=== PATIENT | female | born 1990 | race Caucasian/White ===

== ENCOUNTER → 2017-03-09 | Outpatient (REF) | payer OTHER | LOC: M LAB REF 12:36 | PROVIDERS: ATTEND Internal Medicine | DX: D51.9 Vitamin B12 deficiency anemia, unspecified (principal) ==

== ENCOUNTER → 2017-10-30 | Outpatient (REF) | payer OTHER ==
[2017-10-30 20:20] LABS: VITAMIN B12 LEVEL 451 PG/ML (247-911)
== END ==
LOC: M LAB REF 17:28
DX: D51.9 Vitamin B12 deficiency anemia, unspecified (principal)

== ENCOUNTER → 2017-11-22 | Outpatient (REF) | payer OTHER | LOC: M LAB REF 15:59 | DX: J18.9 Pneumonia, unspecified organism (principal) | CPT/HCPCS: 87633 ==

== ENCOUNTER → 2018-02-25 | Outpatient (REF) | payer OTHER ==
[2018-02-25 18:48] LABS: CONTROL LINE HCG INT CTR LINE PRESENT; HCG, SERUM QUALITATIVE NEGATIVE (NEGATIVE)
== END ==
LOC: M LAB REF 17:49
DX: R10.2 Pelvic and perineal pain (principal)

== ENCOUNTER → 2019-02-05 | Outpatient (REF) | payer OTHER ==
[2019-02-05 14:05] LABS: HCG, SERUM QUALITATIVE NEGATIVE (NEGATIVE)
== END ==
LOC: M LAB REF 12:31
PROVIDERS: ATTEND Internal Medicine
DX: N93.9 Abnormal uterine and vaginal bleeding, unspecified (principal)

== ENCOUNTER → 2019-11-05 | Outpatient (REF) | payer OTHER ==
[2019-11-05 19:47] LABS: APPEARANCE, URINE CLEAR (CLEAR); BACTERIA, URINE AUTO NEGATIVE (NEGATIVE); BILIRUBIN, URINE AUTO NEGATIVE (NEGATIVE); BLOOD, URINE BLOOD NEGATIVE (NEGATIVE); COLOR, URINE YELLOW (YELLOW); GLUCOSE, URINE (UA) AUTO NEGATIVE (NEGATIVE); KETONE, URINE AUTO NEGATIVE (NEGATIVE); LEUKOCYTE ESTERASE, URINE AUTO NEGATIVE (NEGATIVE); NITRITE, URINE AUTO NEGATIVE (NEGATIVE); PROTEIN, URINE AUTO NEGATIVE (NEGATIVE); RBC, URINE AUTO 0 /HPF (0-3); SQUAMOUS EPITHELIAL CELL UR AU 1 /HPF (0-6); UROBILINOGEN, URINE AUTO 0.2 mg/dL (0.0-2.0); WBC, URINE AUTO 2 /HPF (0-3)
== END ==
LOC: M LAB REF 19:07
PROVIDERS: ATTEND Physician Assistant
DX: N39.0 Urinary tract infection, site not specified (principal)

== ENCOUNTER → 2019-11-13 | Outpatient (REF) | payer OTHER ==
[2019-11-13 14:31] LABS: PERCENT SATURATION 30.6 % (13.2-45.0)
== END ==
LOC: M LAB REF 13:23
PROVIDERS: ATTEND Internal Medicine
DX: N76.0 Acute vaginitis (principal)

== ENCOUNTER 2020-04-01 00:50 | Observation (INO) | payer OTHER ==
[~2020-04-01] VITALS: Ht 167.6 cm; Wt 70.4 kg
[2020-04-01] MEDS ORDERED: FLAG500T PO ×2 (00:57→09:30)
[2020-04-01] MEDS ORDERED: NS 1,000 ML IV ONE (01:45)
[2020-04-01] MEDS ORDERED: METAL LOCK LOOP XX ONE (02:15)
[2020-04-01 02:28] LABS: BASO % 0.2 % (0.0-1.0); EOS % 0.4 % (0.0-3.0); HEMATOCRIT 40.6 % (36.0-47.0); HEMOGLOBIN 13.3 g/dl (12.0-15.5); LYMPH # 2.2 10^3/uL (1.5-5.0); MEAN CORPUSCULAR HEMOGLOBIN 28.1 pg (27.0-33.0); MEAN CORPUSCULAR HGB CONC 32.8 g/dl (32.0-36.5); MEAN CORPUSCULAR VOLUME 85.8 fl (80.0-96.0); MONO # 0.6 10^3/uL (0.0-0.8); NEUTROPHILS # 6.7 10^3/uL (1.5-8.5); NEUTROPHILS % 70.2 % (36.0-66.0); PLATELET COUNT, AUTOMATED 309 10^3/uL (150-450); RED BLOOD COUNT 4.73 10^6/uL (4.00-5.40); WHITE BLOOD COUNT 9.5 10^3/uL (4.0-10.0)
[2020-04-01] MEDS ORDERED: SING10TA32 PO (02:40)
[2020-04-01] MEDS ORDERED: CVS1CAP2 PO (02:41)
[2020-04-01 02:49] LABS: AMPHETAMINES LEVEL URINE NEGATIVE (NEGATIVE); BARBITURATES URINE NEGATIVE (NEGATIVE); BENZODIAZEPINES URINE NEGATIVE (NEGATIVE); CANNABINOIDS URINE NEGATIVE (NEGATIVE); COCAINE METABOLITE URINE NEGATIVE (NEGATIVE); METHADONE URINE NEGATIVE (NEGATIVE); OPIATES URINE NEGATIVE (NEGATIVE); PHENCYCLIDINE URINE NEGATIVE (NEGATIVE)
[2020-04-01 02:56] LABS: BLOOD UREA NITROGEN 8 MG/DL (7-18); CALCIUM LEVEL 9.3 MG/DL (8.5-10.1); CARBON DIOXIDE LEVEL 23 MEQ/L (21-32); CHLORIDE LEVEL 103 MEQ/L (98-107); CK-MB VALUE MASS < 1.0 NG/ML (<3.6); CPK CREATINE PHOSPHOKINASE 74 U/L (26-192); CREATININE FOR GFR 0.82 MG/DL (0.55-1.30); GLOMERULAR FILTRATION RATE > 60.0 (>60); GLUCOSE, FASTING 119 MG/DL (70-100); MB/CK RELATIVE INDEX 1.35 (< OR =4); POTASSIUM SERUM 3.5 MEQ/L (3.5-5.1); SODIUM LEVEL 133 MEQ/L (136-145); T UPTAKE 32 % (30-39); THYROXINE (T4) 15.6 UG/DL (4.5-12.0); TROPONIN I < 0.02 NG/ML (< 0.10)
[2020-04-01 03:36] LABS: HCG, SERUM QUALITATIVE NEGATIVE (NEGATIVE)
[2020-04-01] MEDS ORDERED: SETL1TAB PO (04:08)
--- NOTE | 2020-04-01 04:29 | HPEPDOC ---
General Date of Admission Apr 01, 2020 at 04:01 Date of Service: Apr 01, 2020 Chief Complaint The patient is a 29-year-old female admitted with a reason for visit of Abnormal Thyroid Function Test,Dizziness,Tachycard. Source: Patient Exam Limitations: No limitations Timing/Duration: 4-6 hours Severity: Moderate Associated Symptoms: Nausea, Dizziness History of Present Illness Patient is 29 years old female without significant past medical history presented hospital with nausea and dizziness and tachycardia. Patient stated that for past few days she's been having heart racing, around 11 PM this evening she developed nausea and dizziness. Patient denied any symptoms like this before. Patient stated that in general she is a healthy and only take Flagyl and Diflucan for treatment bacterial vaginosis and candidiasis. In emergency room patient was found to have elevated blood pressure of 150/80 with sinus tachycardia of 140. TSH 3.3, T4 15.6 Patient denied fever, chills, cough, chest pain, diarrhea or dysuria Home Medications Scheduled Lactobacillus Combo No.10 (Probiotic) 1 Each Capsule, 1 CAP PO DAILY, (Reported) Levonorgestrel-Ethin Estradiol (Setlakin 0.15 mg-0.03 mg Tab) 1 Each Tbdspk.3mo, 1 TAB PO DAILY, (Reported) Metronidazole (Flagyl) 500 Mg Tablet, 500 MG PO BID, (Reported) Montelukast Sodium (Singulair) 10 Mg Tablet, 10 MG PO DAILY, (Reported) Allergies Coded Allergies: sulfamethoxazole (Verified Allergy, Mild, flushed/rash, 04/01/20) trimethoprim (Verified Allergy, Mild, flushed/rash, 04/01/20) Past Medical History Medical History No significant past medical history Family History Mom has a history of hyperthyroidism Social History * Smoker: Denies Alcohol: Denies A-FIB/CHADSVASC A-FIB History Current/History of A-Fib/PAF?: No Current PO Anticoag Therapy: No Review of Systems Constitutional: Denies: Chills, Fever Eyes: Denies: Pain ENT: Denies: Head Aches Skin: Denies: Rash, Lesions Pulmonary: Denies: Dyspnea Cardiovascular: Reports: Palpitations; Denies: Chest Pain Gastrointestinal: Denies: Nausea, Vomiting Genitourinary: Denies: Dysuria Hematologic: Denies: Bruising, Bleeding Excessively Endocrine: Denies: Polydipsia, Polyphagia Musculoskeletal: Denies: Neck Pain, Other Symptoms Neurological: Denies: Weakness Psych: Reports: Mood Normal Physical Examination General Exam: Positive: Alert, Cooperative Eye Exam: Positive: PERRLA; Negative: Conjunctiva & lids normal (bilateral exophalmus) ENT Exam: Negative: Atraumatic Neck Exam: Positive: Supple; Negative: JVD, Lymphadenopathy Chest Exam: Positive: Clear to auscultation Heart Exam: Positive: Tachycardic Telemetry: Positive: Sinus Abdomen Exam: Positive: Normal bowel sounds Extremity Exam: Negative: Clubbing, Cyanosis Skin Exam: Positive: Nl turgor and temperature Neuro Exam: Positive: Strength at 5/5 X4 ext, Cranial Nerves 3-12 NL Psych Exam: Positive: Mental status NL Vital Signs Vital Signs Date Time Temp Pulse Resp B/P (MAP) Pulse Ox O2 Delivery O2 Flow Rate FiO2 04/01/20 03:16 120 16 141/78 (99) 99 04/01/20 00:52 98.2 Room Air Laboratory Data Labs 24H Laboratory Tests 2 04/01/20 01:49: Immature Granulocyte % (Auto) 0.2, Neutrophils (%) (Auto) 70.2H, Lymphocytes (%) (Auto) 23.0L, Monocytes (%) (Auto) 6.0H, Eosinophils (%) (Auto) 0.4, Basophils (%) (Auto) 0.2, Neutrophils # (Auto) 6.7, Lymphocytes # (Auto) 2.2, Monocytes # (Auto) 0.6, Eosinophils # (Auto) 0.0, Basophils # (Auto) 0.0, Nucleated Red Blood Cells % (auto) 0.0, Anion Gap 7L, Glomerular Filtration Rate > 60.0, Calcium Level 9.3, Total Creatine Kinase 74, Creatine Kinase MB < 1.0, Creatine Kinase MB Relative Index 1.35, Troponin I < 0.02, Thyroid Stimulating Hormone (TSH) 3.330, Free Thyroxine Index 5.0H, Thyroxine (T4) 15.6H, Triiodothyronine (T3) Uptake 32, Human Chorionic Gonadotropin, Qual NEGATIVE, Urine Opiates Scre en NEGATIVE, Urine Methadone Screen NEGATIVE, Urine Barbiturates Screen NEGATIVE, Urine Phencyclidine Screen NEGATIVE, Urine Amphetamines Screen NEGATIVE, Urine Benzodiazepines Screen NEGATIVE, Urine Cocaine Metabolite Screen NEGATIVE, Urine Cannabinoids Screen NEGATIVE CBC/BMP Laboratory Tests 04/01/20 01:49 Assessment/Plan Patient is 29 years old female without significant past medical history presented hospital with nausea and dizziness and tachycardia. Patient stated that for past few days she's been having heart racing, around 11 PM this evening she developed nausea and dizziness. Patient denied any symptoms like this before. Patient stated that in general she is a healthy and only take Flagyl and Diflucan for treatment bacterial vaginosis and candidiasis. In emergency room patient was found to have elevated blood pressure of 150/80 with sinus t achycardia of 140. TSH 3.3, T4 15.6 Patient denied fever, chills, cough, chest pain, diarrhea or dysuria Problems (1) Abnormal thyroid function test Status: Acute Problem Text: Differential diagnosis includes Graves diseases, toxic adenoma, toxic multinodular goiter. Unlikely thyroiditis Patient has elevated T4, T3, exophthalmus, tachycardia. TSH within normal limit , however most likely it can be manifestation of initial phase of hyperthyroidism We'll check TSI , TBII, BRIDGETT I will start propranolol 10 mg every 4h (2) Tachycardia Status: Acute Problem Text: Most likely secondary to hyperthyroidism Propranolol by mouth Plan / VTE VTE Prophylaxis Ordered?: Yes KEVIN SIDHU DO Apr 01, 2020 04:29
[2020-04-01 04:55] VITALS: BP 145/80
[2020-04-01] MEDS ORDERED: PROPRANOLOL 10 MG TAB PO SCH (05:00)
[2020-04-01] MEDS ORDERED: SLF 3 ML SYR IV PRN (05:30)
[2020-04-01] MEDS: SLF 3 ML SYR IV SCH ×3 (06:18→21:17)
[2020-04-01] MEDS ORDERED: D5W/0.45% SODIUM CHLORIDE 1,000 ML IV SCH (07:00)
[2020-04-01 07:03] VITALS: BP 137/79
--- NOTE | 2020-04-01 07:27 | ECGEPIP ---
[facility] - ED Test Date: 2020-04-01 Pat Name: BIJU LALA Department: Room: [place] [address] Gender: Female [employer]: ace : 1990 Requested By: MIAN BARRIOS Order Number: [id number] Reading MD: Rodriguez Perez Measurements Intervals [place] Rate: 108 P: 67 MA: 133 QRS: 75 QRSD: 82 T: -72 QT: 305 QTc: 410 Interpretive Statements SINUS TACHYCARDIA ST DEVIATION AND MODERATE T-WAVE ABNORMALITY, CONSIDER ANTEROLATERAL ISCHEMIA ST DEVIATION AND MODERATE T-WAVE ABNORMALITY, CONSIDER INFERIOR ISCHEMIA NO PRIORS FOR COMPARISON Electronically Signed on 04-01-2020 7:27:10 EDT by Rodriguez Perez
[2020-04-01] MEDS ORDERED: FLUC10TA PO (09:30)
[2020-04-01] MEDS: metroNIDAZOLE (FLAGYL) 500MG TABLET PO SCH ×3 (09:54→21:16)
[2020-04-01] MEDS: HEPARIN SOD (PORCINE) 5000UNITS/ML 1ML VIAL/SYRINGE SC SCH ×2 (09:56→21:16)
[2020-04-01] MEDS: PROPRANOLOL 20 MG TAB PO SCH ×3 (09:56→21:16)
--- NOTE | 2020-04-01 11:28 | IPNPDOC ---
Date Seen The patient was seen on 04/01/20. Progress Note Elevated T4 -unable to obtain nuc med thyroid uptake scan. earliest is Sunday. therefore, appt made for Sunday. NPO for at least 4hrs, no antithyroid meds or contrast studies prior to scan. -propranolol for symptoms Ophthalmopathy -awaiting Thyrotropin rec ab and RAIUscan to confirm Graves. -denies diplopia, no conjuctival injection. PCP to refer to ophthalmology if worsening visual symptoms. Plan: dc in am if cleared by PT,and no orthostasis. continue TELE for the next 24hrs. VS, I&O, 24H, Fishbone Vital Signs/I&O Vital Signs Date Time Temp Pulse Resp B/P (MAP) Pulse Ox O2 Delivery O2 Flow Rate FiO2 04/01/20 09:56 88 137/79 04/01/20 07:03 98.5 18 98 Room Air I&O- Last 24 Hours up to 6 AM 04/01/20 06:00 Intake Total 1000 ml Output Total 0 ml Balance 1000 ml Laboratory Data 24H LABS Laboratory Tests 2 04/01/20 01:49: Immature Granulocyte % (Auto) 0.2, Neutrophils (%) (Auto) 70.2H, Lymphocytes (%) (Auto) 23.0L, Monocytes (%) (Auto) 6.0H, Eosinophils (%) (Auto) 0.4, Basophils (%) (Auto) 0.2, Neutrophils # (Auto) 6.7, Lymphocytes # (Auto) 2.2, Monocytes # (Auto) 0.6, Eosinophils # (Auto) 0.0, Basophils # (Auto) 0.0, Nucleated Red Blood Cells % (auto) 0.0, Anion Gap 7L, Glomerular Filtration Rate > 60.0, Calci um Level 9.3, Total Creatine Kinase 74, Creatine Kinase MB < 1.0, Creatine Kinase MB Relative Index 1.35, Troponin I < 0.02, Thyroid Stimulating Hormone (TSH) 3.330, Free Thyroxine Index 5.0H, Thyroxine (T4) 15.6H, Triiodothyronine (T3) Uptake 32, Human Chorionic Gonadotropin, Qual NEGATIVE, Urine Opiates Screen NEGATIVE, Urine Methadone Screen NEGATIVE, Urine Barbiturates Screen NEGATIVE, Urine Phencyclidine Screen NEGATIVE, Urine Amphetamines Screen NEGATIVE, Urine Benzodiazepines Screen NEGATIVE, Urine Cocaine Metabolite Screen NEGATIVE, Urine Cannabinoids Screen NEGATIVE 04/01/20 05:08: 04/01/20 09:43: Immunoglobulin A 130.0, Immunoglobulin G 842, Immunoglobulin M 103.0, Complement C3 101, Complement C4 12 CBC/BMP Laboratory Tests 04/01/20 01:49 HEATH SALEH MD Apr 01, 2020 11:28
[2020-04-01 12:00] VITALS: BP 155/74
[2020-04-01] MEDS: FLUCONAZOLE 50MG TABLET PO SCH (13:49)
[2020-04-01 16:00] VITALS: BP_SYST 123; BP_SYST 128; BP_SYST 129; BP_DIAS 73; BP_DIAS 77; BP_DIAS 81
[2020-04-01] MEDS: ONDANSETRON 4MG/2ML VIAL IV PRN (19:47)
[2020-04-01 20:00] VITALS: BP 143/89
[2020-04-01] MEDS ORDERED: ACETAMINOPHEN TAB 650MG DOSE (2X325MG) PO PRN (22:15)
[2020-04-02] VITALS: BP 109/61
[2020-04-02 04:00] VITALS: BP 136/73
[2020-04-02 04:41] LABS: HEMATOCRIT 39.3 % (36.0-47.0); HEMOGLOBIN 12.8 g/dl (12.0-15.5); MEAN CORPUSCULAR HEMOGLOBIN 28.2 pg (27.0-33.0); MEAN CORPUSCULAR HGB CONC 32.6 g/dl (32.0-36.5); MEAN CORPUSCULAR VOLUME 86.6 fl (80.0-96.0); PLATELET COUNT, AUTOMATED 276 10^3/uL (150-450); RED BLOOD COUNT 4.54 10^6/uL (4.00-5.40); WHITE BLOOD COUNT 6.6 10^3/uL (4.0-10.0)
[2020-04-02 05:02] LABS: BLOOD UREA NITROGEN 7 MG/DL (7-18); CALCIUM LEVEL 9.2 MG/DL (8.5-10.1); CARBON DIOXIDE LEVEL 24 MEQ/L (21-32); CHLORIDE LEVEL 110 MEQ/L (98-107); CREATININE FOR GFR 0.68 MG/DL (0.55-1.30); GLOMERULAR FILTRATION RATE > 60.0 (>60); GLUCOSE, FASTING 88 MG/DL (70-100); MAGNESIUM LEVEL 1.9 MG/DL (1.8-2.4); POTASSIUM SERUM 4.1 MEQ/L (3.5-5.1); SODIUM LEVEL 139 MEQ/L (136-145)
[2020-04-02] MEDS: SLF 3 ML SYR IV SCH ×2 (06:22→08:30)
[2020-04-02] MEDS ORDERED: PROP20TA PO (07:53)
[2020-04-02] MEDS: FLUCONAZOLE 50MG TABLET PO SCH (08:29)
[2020-04-02 08:30] VITALS: BP 123/74
[2020-04-02] MEDS: metroNIDAZOLE (FLAGYL) 500MG TABLET PO SCH (08:30)
[2020-04-02] MEDS: PROPRANOLOL 20 MG TAB PO SCH (08:30)
[2020-04-02] MEDS: HEPARIN SOD (PORCINE) 5000UNITS/ML 1ML VIAL/SYRINGE SC SCH (08:30)
[2020-04-02 08:35] VITALS: BP 123/74
[2020-04-02 09:49] LABS: THYROID PEROXIDASE ANTIBODY 30.1 U/ML (<60.0)
[2020-04-02 09:50] LABS: THYROGLOBULIN ANTIBODY 18.4 U/ML (<60.0)
[2020-04-02] MEDS: ONDANSETRON 4MG/2ML VIAL IV PRN (10:47)
[2020-04-02] MEDS ORDERED: metroNIDAZOLE (FLAGYL) 500MG TABLET PO SCH (21:00)
[2020-04-03 20:07] LABS: ANTINUCLEAR ANTIBODIES DIRECT Negative (Negative); THYROID BINDING GLOBULIN 24 ug/mL (13-39); THYROID STIMULATING IMMUNOGLOB <0.10 IU/L (0.00-0.55)
--- NOTE | 2020-04-04 16:19 | DSES ---
DATE OF ADMISSION: 04/01/2020 DATE OF DISCHARGE: 04/02/2020 PRIMARY DISCHARGE DIAGNOSES: 1. Suspected hyperthyroidism, questionable Graves' disease. 2. Palpitations and dizziness secondary to suspected hyperthyroidism. 3. Bacterial vaginosis. 4. Oral thrush. 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 Patient had T4 of 15.6, Free T4 index of 5, TSH was 3.33. She was tachycardic with rate of 127, sinus tachycardia on arrival, with normal blood pressure ranging from 142-161 systolic. Patient was started on propranolol 10 mg every 4 hours, but with persistent symptoms, changed to 20 mg three times a day, with heart rate improving to 71-89. Blood pressure was well-maintained at 109-143 systolic. Patient was kept on telemetry with no other issues overnight. She still complained of some lightheadedness. Orthostatics were checked, where were negative. Patient is stable for hospital discharge to followup on thyroglobulin receptor antibodies, as well as nuclear medicine radioactive iodine uptake scan on Sunday and Sunday and referral to co pilot as outpatient. PHYSICAL EXAMINATION: Temperature 97.4, pulse 76, respiratory 20, blood pressure 136/73, 99% on room air. GENERAL: Patient has obvious dermal ophthalmopathy. Extraocular muscles intact. Pupils round and reactive. No jugular venous distention (JVD) or thyromegaly. Moist mucous membranes. LUNGS: Clear to auscultation. No wheezing, rales or rhonchi. HEART: S1, S2. Sinus rhythm. ABDOMEN: Soft, nontender, nondistended. Positive bowel sounds. EXTREMITIES: No cyanosis, clubbing or any pitting edema. LABORATORY DATA: White count 6.6, hemoglobin 12, hematocrit 39, platelet count 276. Sodium 139, potassium 4, chloride 110, bicarbonate 24, BUN 7, creatinine 0.68, glucose 88. TSH 3.33, Free T4 index of 5, T4 15.6, T3 uptake of 32. T4 binding globulin, thyroid stimulating immunoglobulin pending. HCG negative. GAMG normal. BRIDGETT screen pending. Complement level, C3, 4 pending. C5 and total CH50 pending. DISCHARGE INSTRUCTIONS: Immediate followup with primary care physician within five days of discharge. Patient is to be nothing by mouth after midnight for nuclear medicine radioactive thyroid uptake scan on Sunday and Sunday. Patient is to avoid any contrast study or treatment for hyperthyroidism until the radioactive iodine uptake scan has been completed. Primary care physician to refer to co pilot as outpatient. CAM
[2020-04-09 21:07] LABS: COMPLEMENT C5 16 mg/dL (7-20); COMPLEMENT TOTAL (CH50) 52 U/mL (>41)
== END 2020-04-02 11:45 | disposition home or self-care (01) ==
LOC: M ED 00:50 → M ED INP 04:01 → ENRESERV 04:26 → M PCU 04:56
PROVIDERS: ADMIT Internal Medicine; ATTEND Internal Medicine
DX: E05.90 Thyrotoxicosis, unspecified without thyrotoxic crisis or storm (principal); R00.0 Tachycardia, unspecified; R42 Dizziness and giddiness; B96.89 Other specified bacterial agents as the cause of diseases classified elsewhere; B37.0 Candidal stomatitis; Z79.899 Other long term (current) drug therapy; Z88.2 Allergy status to sulfonamides; Z88.8 Allergy status to other drugs, medicaments and biological substances
CPT/HCPCS: 36415; 80048; 80307; 82550; 82553; 82784; 83735; 84436; 84442; 84443; 84445; 84479; 84484; 84703; 85025; 85027; 86038; 86160; 86162; 86376; 86800; 93005; 96361; 96372; 96374; 96376; 97161; 99285; J1644; J2405

== ENCOUNTER → 2020-04-05 | Outpatient (CLI) | payer OTHER ==
[~2020-04-05] MED LIST: CVS1CAP2 PO; FLAG500T PO; FLUC10TA PO; PROP20TA PO; SETL1TAB PO; SING10TA32 PO
--- NOTE | 2020-04-06 13:49 | REP ---
RADIONUCLIDE THYROID UPTAKE AND SCAN: HISTORY: Abnormal TSH. Abnormal thyroid levels. No comparison imaging. TECHNIQUE: 381.0 microcuries of I 123 sodium iodine is ingested and 24 uptake values acquired along with functional images. RESULTS: The 24 uptake value is normal measured at 29.76% (25-35%). Functional images demonstrate homogeneous uptake in normal symmetric sized thyroid lobes. No cold or warm nodule is seen. IMPRESSION: Normal thyroid scan and uptake. Electronically Signed by Aydin Carter MD 04/06/2020 04:00 P
== END ==
LOC: M RAD 12:17
PROVIDERS: ATTEND General Practice
DX: E05.90 Thyrotoxicosis, unspecified without thyrotoxic crisis or storm (principal)
CPT/HCPCS: 78012; A9516

== ENCOUNTER → 2020-06-12 | Outpatient (CLI) | payer OTHER ==
[2020-06-12 18:32] LABS: FREE T4 1.07 NG/DL (0.76-1.46); THYROID STIMULATING HORMONE 1.23 uIU/ML (0.358-3.740)
[2020-06-15 10:51] LABS: CORTISOL AM 29.6 UG/DL (4.3-22.4); THYROID PEROXIDASE ANTIBODY 30.6 U/ML (<60.0)
== END ==
LOC: M WUC 08:30
PROVIDERS: ATTEND Nurse Practitioner Family
DX: E05.80 Other thyrotoxicosis without thyrotoxic crisis or storm (principal); R00.0 Tachycardia, unspecified

== ENCOUNTER → 2020-11-17 | Outpatient (REF) | payer OTHER | LOC: M LAB REF 16:09 | PROVIDERS: ATTEND Internal Medicine | DX: D51.9 Vitamin B12 deficiency anemia, unspecified (principal) ==

== ENCOUNTER → 2021-11-21 | Outpatient (REF) | payer OTHER | LOC: M LAB REF 16:37 | PROVIDERS: ATTEND Internal Medicine | DX: D51.9 Vitamin B12 deficiency anemia, unspecified (principal) ==

== ENCOUNTER → 2022-02-17 | Outpatient (REF) | payer OTHER | LOC: M LAB REF 17:38 | PROVIDERS: ATTEND Internal Medicine | DX: N91.2 Amenorrhea, unspecified (principal) ==

== ENCOUNTER → 2022-05-03 | Outpatient (REF) | payer OTHER | LOC: M LAB REF 16:20 | PROVIDERS: ATTEND Internal Medicine | DX: N91.2 Amenorrhea, unspecified (principal) ==

== ENCOUNTER → 2022-05-30 | Outpatient (REF) | payer OTHER | LOC: M LAB REF 11:59 | PROVIDERS: ATTEND Internal Medicine | DX: Z32.01 Encounter for pregnancy test, result positive (principal) ==

== ENCOUNTER → 2022-06-21 | Outpatient (CLI) | payer OTHER ==
[2022-06-21 10:38] LABS: HEMOGLOBIN 11.9 g/dl (12.0-15.5); MEAN CORPUSCULAR HEMOGLOBIN 28.5 pg (27.0-33.0); MEAN CORPUSCULAR HGB CONC 33.1 g/dl (32.0-36.5); MEAN CORPUSCULAR VOLUME 86.3 fl (80.0-96.0); PLATELET COUNT, AUTOMATED 243 10^3/uL (150-450); RED BLOOD COUNT 4.17 10^6/uL (4.00-5.40)
[2022-06-21 11:50] LABS: HEPATITIS C VIRUS ABY INDEX < 0.0 INDEX (<0.8); HIV 1&2 SCREEN CENTAUR NEGATIVE (NEGATIVE)
[2022-06-21 12:16] LABS: GC DNA AMPLIFICATION NEGATIVE (NEGATIVE)
== END ==
LOC: M PLALAB 08:14
PROVIDERS: ATTEND Obstetrics & Gynecology
DX: Z34.91 Encounter for supervision of normal pregnancy, unspecified, first trimester (principal)

== ENCOUNTER → 2022-08-07 | Outpatient (CLI) | payer OTHER | LOC: M WHC 13:51 | PROVIDERS: ATTEND Obstetrics & Gynecology | DX: Z34.92 Encounter for supervision of normal pregnancy, unspecified, second trimester (principal); Z3A.20 20 weeks gestation of pregnancy ==

== ENCOUNTER → 2022-09-29 | Outpatient (CLI) | payer OTHER ==
[2022-09-29 15:16] LABS: MEAN CORPUSCULAR HEMOGLOBIN 28.8 pg (27.0-33.0); MEAN CORPUSCULAR HGB CONC 32.4 g/dl (32.0-36.5); PLATELET COUNT, AUTOMATED 259 10^3/uL (150-450); RED BLOOD COUNT 3.82 10^6/uL (4.00-5.40); WHITE BLOOD COUNT 9.8 10^3/uL (4.0-10.0)
[2022-09-29 16:12] LABS: GC DNA AMPLIFICATION NEGATIVE (NEGATIVE)
== END ==
LOC: M PLALAB 09:56
PROVIDERS: ATTEND Specialist
DX: Z34.02 Encounter for supervision of normal first pregnancy, second trimester (principal)

== ENCOUNTER → 2022-11-21 | Outpatient (REF) | payer OTHER ==
[2022-11-23 18:17] LABS: PERCENT SATURATION 18.7 % (13.2-45.0)
[2022-11-23 18:20] LABS: FERRITIN 9.6 NG/ML (7.3-270.7)
== END ==
LOC: M LAB REF 16:10
PROVIDERS: ATTEND Internal Medicine
DX: D64.9 Anemia, unspecified (principal)

== ENCOUNTER → 2022-11-28 | Outpatient (REF) | payer OTHER | LOC: M SFHCWAGY 15:23 | PROVIDERS: ATTEND Obstetrics & Gynecology | DX: Z34.03 Encounter for supervision of normal first pregnancy, third trimester (principal) ==

== ENCOUNTER → 2022-12-26 | Outpatient (CLI) | payer OTHER ==
[~2022-12-26] MED LIST changes: +MONT-5 PO; -SING10TA32 PO
[2022-12-26 14:02] LABS: HEMATOCRIT 35.9 % (36.0-47.0); HEMOGLOBIN 11.6 g/dl (12.0-15.5); MEAN CORPUSCULAR HEMOGLOBIN 28.3 pg (27.0-33.0); MEAN CORPUSCULAR HGB CONC 32.3 g/dl (32.0-36.5); MEAN CORPUSCULAR VOLUME 87.6 fl (80.0-96.0); PLATELET COUNT, AUTOMATED 253 10^3/uL (150-450); WHITE BLOOD COUNT 8.8 10^3/uL (4.0-10.0)
[2022-12-26 14:28] LABS: TOTAL PROTEIN,RANDOM URINE 9.3 MG/DL (0.0-14.0)
[2022-12-26 14:31] LABS: URIC ACID 4.2 MG/DL (3.1-7.8)
[2022-12-26 14:33] LABS: CREATININE,RANDOM URINE 39.9 MG/DL; LDH LACTATE DEHYDROGENASE 141 U/L (120-246)
[2022-12-26 14:34] LABS: ALT/SGPT 19 U/L (7.0-40); AST/SGOT 22 U/L (<34); BILIRUBIN,TOTAL 0.3 MG/DL (0.3-1.2); CREATININE FOR GFR 0.37 MG/DL (0.55-1.30); GLOMERULAR FILTRATION RATE > 60.0 (>60)
== END ==
LOC: M PLALAB 09:44
PROVIDERS: ATTEND Advanced Practice Midwife
DX: O13.9 Gestational [pregnancy-induced] hypertension without significant proteinuria, unspecified trimester (principal)

== ENCOUNTER 2023-01-01 09:54 | Inpatient (IN) | payer OTHER ==
[2023-01-01] VITALS (11 sets, daily range): BP systolic 116–146; BP diastolic 70–94
[~2023-01-01] VITALS: Ht 165.1 cm; Wt 80.2 kg
[2023-01-01] MEDS ORDERED: LACTATED RINGER'S 1000 ML IV STA (10:05)
[2023-01-01] MEDS ORDERED: OXYTOCIN DRIP 30 UNITS in IV 1 EA IV PRN (10:05)
[2023-01-01] MEDS ORDERED: CARBOPROST TROMETHAMINE 250 MCG/ML AMP IM PRN (10:05)
[2023-01-01] MEDS ORDERED: OXYTOCIN INJ 10UNITS/ML 1ML VIAL IM PRN (10:05)
[2023-01-01] MEDS ORDERED: LIDOCAINE 1% MDV 20ML VIAL INFIL PRN (10:05)
[2023-01-01] MEDS ORDERED: TRANEXAMIC ACID INJection 1,000 MG in NS 100 ML IV PRN (10:05)
[2023-01-01] MEDS ORDERED: METHYLERGONOVINE MALEATE 0.2MG/ML 1ML VIAL IM PRN (10:05)
[2023-01-01] MEDS ORDERED: PRENTAB9 PO (10:13)
[2023-01-01] MEDS ORDERED: HOME MED LIST COMPLETE! XX SCH (10:15)
[2023-01-01 10:46] LABS: HEMATOCRIT 36.9 % (36.0-47.0); HEMOGLOBIN 12.2 g/dl (12.0-15.5); MEAN CORPUSCULAR HEMOGLOBIN 28.4 pg (27.0-33.0); MEAN CORPUSCULAR HGB CONC 33.1 g/dl (32.0-36.5); MEAN CORPUSCULAR VOLUME 85.8 fl (80.0-96.0); PLATELET COUNT, AUTOMATED 247 10^3/uL (150-450); WHITE BLOOD COUNT 9.8 10^3/uL (4.0-10.0)
[2023-01-01] MEDS: miSOPROStol 50MCG 1/2 TABLET PO SCH ×2 (12:15→16:18)
[2023-01-01] MEDS ORDERED: OXYTOCIN DRIP 30 UNITS in IV 1 EA IV SCH (20:30)
[2023-01-01] MEDS: LR 1,000 ML IV SCH (20:45)
[2023-01-02] VITALS (47 sets, daily range): BP systolic 102–139; BP diastolic 51–77
[2023-01-02] MEDS ORDERED: NALOXONE INJ 0.4MG/1ML VIAL IV PRN (03:45)
[2023-01-02] MEDS ORDERED: ONDANSETRON 4MG 2ML VIAL IV PRN (03:45)
[2023-01-02] MEDS ORDERED: FENTANYL/ROPIVACAINE/NACL BAG 100 ML EPIDURAL SCH (03:45)
[2023-01-02] MEDS ORDERED: LR 500 ML IV PRN (03:45)
[2023-01-02] MEDS ORDERED: diphenhydrAMINE 50MG/ML VIAL IV PRN (03:45)
[2023-01-02] MEDS ORDERED: EPIDURAL/PCA KEYS XX PRN ×2 (03:45→03:50)
[2023-01-02] MEDS ORDERED: ePHEDrine SULFATE 25 MG/5 ML(5MG/ML) SYRINGE IVP PRN (03:50)
[2023-01-02] MEDS: LR 1,000 ML IV SCH ×2 (04:17→09:16)
[2023-01-02 14:01] LABS: CORD GAS ABE A -7.7; CORD GAS HCO3 A 18.8 MEQ/L; CORD GAS O2 SAT A 45.4 %; CORD GAS PCO2 A 41.8 mmHg; CORD GAS PH A 7.271 UNITS; CORD GAS PO2 A 22.8 mmHg; CORD GAS SBC A 17.2 MEQ/L; CORD GAS TCO2 A 20.1 MEQ/L
[2023-01-02 14:04] LABS: CORD GAS ABE V -7.4; CORD GAS HCO3 V 19.1 MEQ/L; CORD GAS PCO2 V 42.4 mmHg; CORD GAS PH V 7.272 UNITS; CORD GAS PO2 V 21.3 mmHg; CORD GAS SBC V 17.3 MEQ/L; CORD GAS TCO2 V 20.4 MEQ/L
[2023-01-02] MEDS ORDERED: OXYTOCIN DRIP 30 UNITS in IV 1 EA IV SCH (14:40)
[2023-01-02] MEDS ORDERED: IBUPROFEN 600MG TAB PO PRN (14:40)
[2023-01-02] MEDS ORDERED: DOCUSATE SODIUM 100MG CAPSULE PO PRN (14:40)
[2023-01-02] MEDS ORDERED: RHOGAM 300MCG (1500IU) INJ IM SCH (14:40)
[2023-01-02] MEDS ORDERED: METHYLERGONOVINE MALEATE 0.2 MG TAB PO PRN (14:40)
[2023-01-02] MEDS ORDERED: DIBUCAINE 1% OINTMENT 30GM TOP PRN (14:40)
[2023-01-02] MEDS ORDERED: ACETAMINOPHEN 500 MG TAB PO PRN (14:40)
[2023-01-02] MEDS ORDERED: ACETAMINOPHEN TAB 650MG DOSE (2X325MG) PO PRN (14:40)
[2023-01-02] MEDS: IBUPROFEN 800 MG TAB PO PRN (15:53)
[2023-01-02] MEDS: PERCOCET 5MG/325MG TAB PO PRN ×2 (17:19→21:41)
[2023-01-03] MEDS: IBUPROFEN 800 MG TAB PO PRN ×3 (01:25→17:27)
[2023-01-03] MEDS: PERCOCET 5MG/325MG TAB PO PRN ×3 (04:00→12:15)
[2023-01-03 05:29] VITALS: BP 106/58
[2023-01-03] MEDS: PRENATAL VITAMINS CHEWABLE TABLET PO SCH (07:47)
[2023-01-03] MEDS: DOCUSATE SODIUM 100MG CAPSULE PO SCH ×2 (09:12→20:09)
[2023-01-03 18:00] VITALS: BP 132/86
[2023-01-04] MEDS: IBUPROFEN 800 MG TAB PO PRN ×2 (01:02→12:51)
[2023-01-04] MEDS: PERCOCET 5MG/325MG TAB PO PRN ×3 (01:02→13:33)
[2023-01-04 06:00] VITALS: BP 115/73
[2023-01-04] MEDS ORDERED: MEASLES,MUMPS,RUBELLA VACCINE INJ (MMR-II) SC.IMMUN ONE (09:00)
[2023-01-04] MEDS: DOCUSATE SODIUM 100MG CAPSULE PO SCH (09:20)
[2023-01-04] MEDS: PRENATAL VITAMINS CHEWABLE TABLET PO SCH (09:20)
[2023-01-04] MEDS ORDERED: PERCOCET PO (12:08)
[2023-01-04] MEDS ORDERED: IBUP80TA PO (12:08)
[2023-01-04 14:00] VITALS: BP 124/76
== END 2023-01-04 17:35 | disposition home or self-care (01) | DRG 560 ==
LOC: M LDI 09:54 → M OBS 01-02 18:38
PROVIDERS: ADMIT Advanced Practice Midwife; ATTEND Specialist
PROC: 3E0P7GC Introduction of Other Therapeutic Substance into Female Reproductive, Via Natural or Artificial Opening (ICD-10-PCS; 2023-01-01)
PROC: 10D07Z3 Extraction of Products of Conception, Low Forceps, Via Natural or Artificial Opening (ICD-10-PCS; principal; 2023-01-02)
PROC: 0KQM0ZZ Repair Perineum Muscle, Open Approach (ICD-10-PCS; 2023-01-02)
PROC: 10907ZC Drainage of Amniotic Fluid, Therapeutic from Products of Conception, Via Natural or Artificial Opening (ICD-10-PCS; 2023-01-02)
DX: O48.0 Post-term pregnancy (principal); O64.0XX0 Obstructed labor due to incomplete rotation of fetal head, not applicable or unspecified; O77.0 Labor and delivery complicated by meconium in amniotic fluid; Z3A.41 41 weeks gestation of pregnancy; Z88.2 Allergy status to sulfonamides; Z88.8 Allergy status to other drugs, medicaments and biological substances; O76 Abnormality in fetal heart rate and rhythm complicating labor and delivery; O70.1 Second degree perineal laceration during delivery; Z37.0 Single live birth

== ENCOUNTER → 2023-02-14 | Outpatient (REF) | payer OTHER ==
[~2023-02-14] MED LIST changes: +IBUP80TA PO; +PERCOCET PO; +PRENTAB9 PO
== END ==
LOC: M SFHCWAGY 17:11
PROVIDERS: ATTEND Specialist
DX: N39.0 Urinary tract infection, site not specified (principal)

== ENCOUNTER → 2023-02-22 | Outpatient (REF) | payer OTHER | LOC: M SFHCWAGY 15:29 | PROVIDERS: ATTEND Specialist | DX: N39.0 Urinary tract infection, site not specified (principal) ==

== ENCOUNTER 2023-03-06 15:45 | Outpatient (RCR) | payer OTHER | END 2023-03-07 | LOC: M PT 15:45 | PROVIDERS: ATTEND Specialist | DX: G62.9 Polyneuropathy, unspecified (principal) ==

== ENCOUNTER → 2023-03-22 | Outpatient (CLI) | payer OTHER | LOC: M SOG 10:15 | PROVIDERS: ATTEND Orthopaedic Surgery | DX: M51.37 Other intervertebral disc degeneration, lumbosacral region (principal) ==

== ENCOUNTER 2023-04-04 15:45 | Outpatient (RCR) | payer OTHER | END 2023-04-06 | LOC: M PT 15:45 | PROVIDERS: ATTEND Specialist | DX: G62.9 Polyneuropathy, unspecified (principal) | CPT/HCPCS: 97010; 97110; G0283 ==

== ENCOUNTER 2023-04-26 10:41 | Outpatient (RCR) | payer OTHER | END 2023-05-07 | LOC: M PT 10:41 | PROVIDERS: ATTEND Specialist | DX: G62.9 Polyneuropathy, unspecified (principal) ==

== ENCOUNTER 2023-05-31 08:28 | Outpatient (RCR) | payer OTHER | END 2023-06-07 | LOC: M PT 08:28 | PROVIDERS: ATTEND Specialist | DX: G62.9 Polyneuropathy, unspecified (principal) ==

== ENCOUNTER → 2024-04-04 | Outpatient (CLI) | payer OTHER | LOC: M WUC 14:58 | PROVIDERS: ATTEND Internal Medicine | DX: M51.36 Other intervertebral disc degeneration, lumbar region (principal) ==

== ENCOUNTER → 2025-01-14 | Outpatient (REF) | payer OTHER ==
[2025-01-17 16:03] LABS: HPV APTIMA Not Detected (Not Detected)
== END ==
LOC: M SFHCWAGY 13:11
PROVIDERS: ATTEND Specialist
DX: Z12.4 Encounter for screening for malignant neoplasm of cervix (principal)
CPT/HCPCS: 87624; G0123

== ENCOUNTER → 2025-06-01 | Outpatient (REF) | payer OTHER | LOC: M LAB REF 17:38 | PROVIDERS: ATTEND Internal Medicine | DX: Z33.1 Pregnant state, incidental (principal) ==

== ENCOUNTER → 2025-06-01 | Outpatient (REF) | payer OTHER ==
[2025-06-01 19:21] LABS: IRON (FE) 121.0 UG/DL (50-170); PERCENT SATURATION 35.4 % (13.2-45.0)
[2025-06-01 19:27] LABS: VITAMIN B12 LEVEL 486.0 PG/ML (211-911)
== END ==
LOC: M LAB REF 17:27
PROVIDERS: ATTEND Internal Medicine
DX: D64.9 Anemia, unspecified (principal)

== ENCOUNTER → 2025-07-27 | Outpatient (CLI) | payer OTHER ==
[2025-07-27 17:16] LABS: PLATELET COUNT, AUTOMATED 263 10^3/uL (150-450)
[2025-07-27 18:13] LABS: HIV 1&2 SCREEN NEGATIVE (NEGATIVE)
[2025-07-27 18:16] LABS: Trichomonas vaginalis (AMP) NOT DETECTED (NEGATIVE)
[2025-07-27 18:21] LABS: HEPATITIS C VIRUS ABY INDEX < 0.02 INDEX (<0.8)
[2025-07-27 18:40] LABS: GC DNA AMPLIFICATION NEGATIVE (NEGATIVE)
== END ==
LOC: M PLALAB 14:52
PROVIDERS: ATTEND Specialist
DX: Z34.81 Encounter for supervision of other normal pregnancy, first trimester (principal)

== ENCOUNTER → 2025-08-25 | Outpatient (REF) | payer OTHER | LOC: M SFHCWAGY 14:59 | PROVIDERS: ATTEND Nurse Practitioner Family | DX: R82.90 Unspecified abnormal findings in urine (principal) ==

== ENCOUNTER → 2025-09-23 | Outpatient (CLI) | payer OTHER ==
[2025-09-23 15:14] LABS: LDH LACTATE DEHYDROGENASE 158 U/L (120-246); PLATELET COUNT, AUTOMATED 281 10^3/uL (150-450)
[2025-09-23 15:15] LABS: ALT/SGPT 13 U/L (7.0-40); AST/SGOT 16 U/L (<34); CREATININE FOR GFR 0.42 MG/DL (0.55-1.30); GLOMERULAR FILTRATION RATE > 90.0 (>60)
[2025-09-23 15:35] LABS: TOTAL PROTEIN,RANDOM URINE < 6.0 MG/DL (0.0-14.0)
== END ==
LOC: M PLALAB 11:21
PROVIDERS: ATTEND Obstetrics & Gynecology
DX: O13.2 Gestational [pregnancy-induced] hypertension without significant proteinuria, second trimester (principal); Z3A.00 Weeks of gestation of pregnancy not specified

== ENCOUNTER → 2025-09-29 | Outpatient (CLI) | payer OTHER | LOC: M WHC 13:57 | PROVIDERS: ATTEND Nurse Practitioner Family | DX: Z34.82 Encounter for supervision of other normal pregnancy, second trimester (principal) ==